=== PATIENT | male | born 1965 | race Caucasian/White ===

== ENCOUNTER 2022-11-25 15:23 | Emergency (ER) | payer BC, OTHER ==
[2022-11-25 15:35] VITALS: BP 125/83; PULSE 86; RESP 20; TEMP 98.1; BMI 28.3
== END 2022-11-25 16:46 | disposition home or self-care (01) ==
LOC: JERFT 15:23 → JER 15:23 → JERFT 16:46
DX: S16.1XXA Strain of muscle, fascia and tendon at neck level, initial encounter (principal); X50.1XXA Overexertion from prolonged static or awkward postures, initial encounter
CPT/HCPCS: 99281-25